=== PATIENT | female | born 1965 | race Caucasian/White ===

== ENCOUNTER 2020-10-13 22:10 | Emergency (ER) | payer OTHER ==
[~2020-10-13 22:10] MED LIST: KEFLEX CAP 500500 MG PO; PYRIDIUM200 MG PO
[2020-10-14 01:49] LABS: HEMOGLOBIN 13.3 gm/dl (12.3-15.3); RED BLOOD COUNT 4.43 M/UL (4.00-5.10); WHITE BLOOD COUNT 7.9 K/UL (4.5-11.0)
[2020-10-14] MEDS ORDERED: LODINE CAP 300300 MG PO (02:21)
[2020-10-14] MEDS ORDERED: NORFLEX 100 MG100 MG PO (02:21)
[2020-10-14 02:40] LABS: BUN/CREATININE RATIO 31 (0-10)
== END 2020-10-14 04:00 | disposition home or self-care (01) ==
LOC: ER1 22:10
PROVIDERS: Physician Assistant
DX: S13.4XXA Sprain of ligaments of cervical spine, initial encounter (principal); S23.3XXA Sprain of ligaments of thoracic spine, initial encounter; S33.5XXA Sprain of ligaments of lumbar spine, initial encounter; S70.02XA Contusion of left hip, initial encounter; S20.212A Contusion of left front wall of thorax, initial encounter; I10 Essential (primary) hypertension; E78.5 Hyperlipidemia, unspecified; V49.40XA Driver injured in collision with unspecified motor vehicles in traffic accident, initial encounter; Y92.410 Unspecified street and highway as the place of occurrence of the external cause; Z88.1 Allergy status to other antibiotic agents; Z88.5 Allergy status to narcotic agent; Z88.6 Allergy status to analgesic agent; Z88.8 Allergy status to other drugs, medicaments and biological substances
CPT/HCPCS: 71045; 72125; 72128; 72131; 73552; 80053; 81001; 85025; 87086; 99284

== ENCOUNTER 2021-06-21 13:40 | Emergency (ER) | payer OTHER ==
[~2021-06-21 13:40] MED LIST changes: +LODINE CAP 300300 MG PO; +NORFLEX 100 MG100 MG PO
[2021-06-21 14:39] LABS: HEMOGLOBIN 13.4 gm/dl (12.3-15.3); RED BLOOD COUNT 4.44 M/UL (4.00-5.10); WHITE BLOOD COUNT 5.9 K/UL (4.5-11.0)
[2021-06-21 15:12] LABS: BUN/CREATININE RATIO 24 (0-10)
[2021-06-21] MEDS ORDERED: FLOMAX0.4 MG PO (18:03)
[2021-06-21] MEDS ORDERED: TORADOL 10 MG T10 MG PO (18:03)
[2021-06-21] MEDS ORDERED: HYDROCODON-ACE1 EAC4 PO (18:05)
== END 2021-06-21 18:41 | disposition home or self-care (01) ==
LOC: ER1 13:40
PROVIDERS: Physician Assistant
DX: N13.2 Hydronephrosis with renal and ureteral calculous obstruction (principal); E78.5 Hyperlipidemia, unspecified; Z87.442 Personal history of urinary calculi; Z90.710 Acquired absence of both cervix and uterus; Z88.1 Allergy status to other antibiotic agents
CPT/HCPCS: 80053; 81001; 85025; 96374; 99284; J1885

== ENCOUNTER 2021-08-03 10:43 | Emergency (ER) | payer OTHER ==
[~2021-08-03 10:43] MED LIST changes: +FLOMAX0.4 MG PO; +HYDROCODON-ACE1 EAC4 PO; +TORADOL 10 MG T10 MG PO
== END 2021-08-03 12:36 | disposition home or self-care (01) ==
LOC: ER1 10:43
DX: U07.1 COVID-19 (principal); I10 Essential (primary) hypertension; E78.5 Hyperlipidemia, unspecified; Z88.1 Allergy status to other antibiotic agents; Z88.8 Allergy status to other drugs, medicaments and biological substances
CPT/HCPCS: 0240U; 71045; 87081; 87880; 99283

== ENCOUNTER 2021-12-16 10:45 | Emergency (ER) | payer OTHER | END 2021-12-16 16:35 | disposition home or self-care (01) | LOC: ER1 10:45 | DX: S80.01XA Contusion of right knee, initial encounter (principal); S80.11XA Contusion of right lower leg, initial encounter; E78.5 Hyperlipidemia, unspecified; I10 Essential (primary) hypertension; W19.XXXA Unspecified fall, initial encounter; Y92.009 Unspecified place in unspecified non-institutional (private) residence as the place of occurrence of the external cause | CPT/HCPCS: 73564; 93971; 99284 ==